=== PATIENT | male | born 1950 | race Two or more races ===

== ENCOUNTER 2018-10-23 20:43 | Emergency (ER) | payer BC, MEDICAID ==
[~2018-10-23] VITALS: Ht 180.3 cm; Wt 93.0 kg
[2018-10-23 21:44] VITALS: BP 142/93
== END 2018-10-24 01:50 | disposition left against medical advice (07) ==
LOC: ER 22:38
DX: M54.9 Dorsalgia, unspecified (principal); Z53.21 Procedure and treatment not carried out due to patient leaving prior to being seen by health care provider